=== PATIENT | female | born 1990 | race African-American/Black ===

== ENCOUNTER 2023-02-01 09:00 | Outpatient (CLI) | payer OTHER, SELFPAY | END 2023-02-01 09:01 | disposition home or self-care (01) | LOC: NFLDREF 02-03 09:23 | PROVIDERS: Visit Provider Physician Assistant Medical | DX: N39.0 Urinary tract infection, site not specified (principal); R30.0 Dysuria; N30.00 Acute cystitis without hematuria; Z11.3 Encounter for screening for infections with a predominantly sexual mode of transmission | CPT/HCPCS: 87086; 87186 ==

== ENCOUNTER 2023-05-17 09:59 | Outpatient (CLI) | payer OTHER, SELFPAY ==
[2023-05-17 16:18] LABS: Chlamydia DNA Amplified* Not Detected (No Detected)
[2023-05-17 16:19] LABS: GC DNA Amplified* Not Detected (No Detected)
== END 2023-05-17 10:00 | disposition home or self-care (01) ==
LOC: FRMREF 09:59
PROVIDERS: Visit Provider Physician Assistant Medical
DX: Z11.3 Encounter for screening for infections with a predominantly sexual mode of transmission (principal)
CPT/HCPCS: 87491; 87591